=== PATIENT | male | born 2000 | race Caucasian/White ===

== ENCOUNTER 2018-01-14 22:13 | Emergency (ER) | payer OTHER ==
[~2018-01-14] VITALS: Ht 182.9 cm; Wt 90.7 kg
[2018-01-14 22:35] VITALS: BP 112/68
[2018-01-14] MEDS ORDERED: AMOX1TAB58 PO (22:57)
--- NOTE | 2018-01-14 22:58 | ED.ADGEN ---
Adult General Chief Complaint Chief Complaint Right ear dogbite HPI HPI Patient was bitten in the right ear by a neighbor's dog. He noted no other injury. He was roughhousing with the dog prior to the bite. The dog has had all its immunizations. Patient has all his immunizations. He has no allergies to medications. He notes some scant bleeding was stopped. Review of Systems Review of Systems Constitutional: Denies fever or chills Eyes: Denies change in visual acuity, redness, or eye pain HENT: Denies nasal congestion or sore throat, with right pinna dog bite Respiratory: Denies cough or shortness of breath Cardiovascular: No additional information not addressed in HPI GI: Denies abdominal pain, nausea, vomiting, bloody stools or diarrhea : Denies dysuria or hematuria Musculoskeletal: Denies back pain or joint pain Integument: Denies rash or skin lesions Neurologic: Denies headache, focal weakness or sensory changes Endocrine: Denies polyuria or polydipsia All other systems were reviewed and found to be within normal limits, except as documented in this note. Current Medications Current Medications Current Medications Medications (Trade) Dose Ordered Sig/Lorna Start Time Stop Time Status Last Admin Dose Admin Amoxicillin/ Clavulanate Potassium (Augmentin 500/ 125mg) 1 tab 1X ONCE 01/14/18 23:00 01/14/18 23:07 DC 01/14/18 23:16 1 TAB Allergies Allergies Allergies Coded Allergies Type Severity Reaction Last Updated Verified No Known Drug Allergies 01/14/18 No Physical Exam Physical Exam Constitutional: Well developed, well nourished, no acute distress, non-toxic appearance. HENT: Normocephalic, atraumatic, bilateral external ears normal, TMs normal bilaterally, oropharynx moist, no oral exudates, nose normal. Superficial right pinna laceration/excoriation 1 cm no need for suture repair. No deformity of pinna Eyes: PERRLA, EOMI, conjunctiva normal, no discharge. Neck: Normal range of motion, no tenderness, supple, no stridor. Cardiovascular:Heart rate regular rhythm, no murmur Lungs & Thorax: Bilateral breath sounds clear to auscultation Abdomen: Bowel sounds normal, soft, no tenderness, no masses, no pulsatile masses. Skin: Warm, dry, no erythema, no rash. Back: No tenderness, no CVA tenderness. Extremities: No tenderness, no cyanosis, no clubbing, ROM intact, no edema. Neurologic: Alert and oriented X 3, normal motor function, normal sensory function, no focal deficits noted. Psychologic: Affect normal, judgement normal, mood normal. Current Patient Data Vital Signs Vital Signs Date Time Temp Pulse Resp B/P (MAP) Pulse Ox O2 Delivery O2 Flow Rate FiO2 01/14/18 22:35 97.5 66 16 99 Room Air EKG EKG [] Radiology/Procedures Radiology/Procedures [] Course & Med Decision Making Course & Med Decision Making Emergency Department course Patient presents wit right ear dog bite DDx- laceration, cartilage laceration The patient was stable in the ED. Right ear dog bite noted no violation of cartilage. no ear deformity. Noting superficial laceration and excoriations, will give Augmentin for prophylaxis. Patient will follow-up with CP through [facility]. Final Impression Final Impression Clinical Impression Right ear dog bite Trisha Disclaimer Trisha Disclaimer This electronic medical record was generated, in whole or in part, using a voice recognition dictation system. Departure Departure: Impression: Primary Impression: Dog bite of right ear Disposition: 01 HOME, SELF-CARE Condition: STABLE Referrals: ADRIANNA OCONNELL MD Follow-up tomorrow for further evaluation Patient Instructions: Animal Bite, [id number] Additional Instructions: If you develop worse pain, swelling, bleeding, redness, pus drainage, fevers return to emergency department immediately Scripts Amoxicillin/Potassium Clav (AUGMENTIN 500-125 TABLET) 1 Each Tablet 1 TAB PO TID for 5 Days, #15 TAB Prov: SHEFALI NICOLE MD 01/14/18 SHEFALI NICOLE MD Jan 14, 2018 22:58
[2018-01-14] MEDS ORDERED: AMOXICILLIN/K CLAV 500/125MG TABLET. PO ONE (23:00)
== END 2018-01-14 23:20 | disposition home or self-care (01) ==
LOC: ER 22:13
DX: S01.351A Open bite of right ear, initial encounter (principal); S01.311A Laceration without foreign body of right ear, initial encounter; W54.0XXA Bitten by dog, initial encounter; Y93.83 Activity, rough housing and horseplay; Y92.89 Other specified places as the place of occurrence of the external cause; Y99.8 Other external cause status
CPT/HCPCS: 99283